=== PATIENT | male | born 1970 | race Caucasian/White ===

== ENCOUNTER 2018-07-21 06:28 | Emergency (ER) | payer SELFPAY ==
[2018-07-21 07:27] VITALS: BP 138/87; PULSE 78; TEMP 98.3; BMI 41.9
--- NOTE | 2018-07-21 07:50 | PDOC ---
History of Present Illness - General Chief Complaint: Ear Problem Stated Complaint: EARACHE Time Seen by Provider: 07/21/18 07:30 History Source: Patient Exam Limitations: No Limitations - History of Present Illness Initial Comments: 48 y/o male presenting to [facility] ER via private auto complaining of right ear ache for the past four days. Pt states the pain started spontaneously and is localized only to the right without sinus pressure, throat pain, mouth pain, lacrimation, or rhinorrhea. Expressed "white stuff" from ear this morning with insertion of Q-tip; no blood. Endorses some decrease in hearing from the effected ear. Pt denies history of similar. Pt denies chronic medical conditions. Past History - Past Medical History Allergies/Adverse Reactions: Allergies Allergy/AdvReac Type Severity Reaction Status Date / Time No Known Allergies Allergy Verified 07/21/18 07:23 Home Medications: Ambulatory Orders Amox-Tr/K Cl [Augmentin - 875Mg Tablet] 1 tab PO BID 7 Days #14 tablet 07/21/18 Ciprofloxacin HCl/Dexameth [Ciprodex Otic Suspension] 4 drop AD BID #1 bottle COPD: No Other medical history: DENIES. - Suicide/Smoking/Psychosocial Hx Smoking History: Former smoker Have you smoked in the past 12 months: No Information on smoking cessation initiated: No Review of Systems - Review of Systems Able to Perform ROS?: Yes Is the patient limited Irish proficient: No Constitutional: No: Chills, Diaphoresis, Fever HEENTM: Yes: Ear Pain, Ear Discharge. No: Recent change in vision, Nose Congestion, Throat Pain, Throat Swelling, Mouth Pain, Difficulty Swallowing Respiratory: No: Shortness of Breath Cardiac (ROS): No: Chest Pain ABD/GI: No: Nausea, Vomiting, Abdominal cramping *Physical Exam - Vital Signs Last Vital Signs Temp Pulse Resp BP Pulse Ox 98.3 F 78 19 138/87 98 07/21/18 07:23 07/21/18 07:23 07/21/18 07:23 07/21/18 07:23 07/21/18 07:23 - Physical Exam Comments: Constitutional: Well-developed, well-nourished male in no acute distress or obvious discomfort. Found sitting up on edge of hospital bed. Alert and oriented x4. Answered all questions appropriately and completely. Speech was non -labored, non-pressured. Head: Normocephalic. No obvious external signs of trauma. Eyes: Sclerae white. EARS: Right external auditory canal erythematous and edematous, unable to visualize TM. Left external auditory canal clear with pearly campos TM. Hearing grossly intact. No R or L mastoid tenderness. NOSE: No nasal discharge. THROAT: Oral cavity and pharynx normal. No inflammation, swelling, exudate, or lesions. Teeth and gingiva in good general condition. Neck: Supple, trachea is midline. No lymphadenitis. No JVD or thyromegaly. Cardiovascular: Regular rate and regular rhythm. No murmur, rubs, clicks, or gallops. Peripheral pulses: Radial pulses full. Respiratory: Equal chest rise and fall. Clear to auscultation bilaterally. No stridor, no wheezing, no rhonchi. Skin: Warm, dry, and intact. No bruising, rashes, or other lesions. No palpable nodules. Psych: Affect: appropriate. Mood: normal. Medical Decision Making - Medical Decision Making 48 y/o previously healthy male complaining of right sided ear ache x4 days with reported purulent drainage this morning. No systemic signs/symptoms. No history of prior. Afebrile. Vitals unremarkable for hypotension or tachycardia. Physical exam revealed erythematous and edematous right external canal without mastoid tenderness or lymphadenitis. Suspect otitis externa but cannot evaluate for otitis media given poor visualization of TM. Low suspicion for mastoiditis versus pariotidis. Ordered POC BGL as pt does not have PCP and is presenting with ear infection without history of similar. Will prescribe 7 day course of Augmentin and Ciprodex otic solution. Pt does not have PCP. Will refer to resident clinic for follow up. Will also provide ENT referral. BGL within normal range. Discussed BGL and physical exam results. Answered all questions. Provided return precautions. Pt expressed verbal understanding and agreement with plan to discharge home with outpatient follow up. Pt discharged from the department without further incident. *DC/Admit/Observation/Transfer Diagnosis at time of Disposition: Otitis externa Qualifiers: Otitis externa type: unspecified type Chronicity: acute Laterality: right Qualified Code(s): H60.501 - Unspecified acute noninfective otitis externa, right ear - Discharge Dispostion Condition at time of disposition: Good Decision to Admit order: No - Prescriptions Prescriptions: Amox-Tr/K Cl [Augmentin - 875Mg Tablet] 1 tab PO BID 7 Days #14 tablet Ciprofloxacin HCl/Dexameth [Ciprodex Otic Suspension] 4 drop AD BID #1 bottle - Referrals Referrals: [facility] [place] [Provider Group] Felton Travis MD [Staff Physician] - - Patient Instructions Printed Discharge Instructions: DI for Otitis Externa Additional Instructions: You likely have an ear infection on the right side. I have sent a prescription for an antibiotic called [email or web address] to [facility] in [place], [place]. The telephone number is [phone]. Please take this medication as directed. Please follow up with a primary care physician within the next week. I have placed a referral for you to see the [facility] [place]. You will need to call to make an appointment. The number is [phone]. The address is as follows: [address] [place] [address] I have also entered a referral for you to follow up with an Ear, Nose, and Throat doctor. Dr. Felton Travis. You will need to call the office to make an appointment. The telephone number is . Come back to the emergency department if your symptoms worsen or if you feel as though your condition requires additional emergency evaluation. Print Language: LUXEMBOURGISH - Post Discharge Activity
--- NOTE | 2018-07-21 08:05 | PDOC ---
Attending Attestation - Resident Resident Name: OcasioKevin - ED Attending Attestation I have performed the following: I have examined & evaluated the patient, The case was reviewed & discussed with the resident, I agree w/resident's findings & plan, Exceptions are as noted - HPI HPI: 07/21/18 08:08 48y M no pmhx presents with complaint of R ear pain x 5 days without systemic complaints in cluding fever/chills, headache, n/v. Pt denies any recent swimming. notes he does clean his ears with q tips occasionally, bot non recently. on exam: ENT: edemadous slightly erythemadous R external ear canal, unable to visualize R TM no mastoid tenderness, no lymphadenopathy L TM and ear canal normal General: no acute ditress suspect otitis externa will ck BGM to r/o DM will have pt fu with PMD will start ciprodex - Physicial Exam PE: 07/22/18 08:46 see above - Medical Decision Making 07/22/18 08:46 see above
== END 2018-07-21 08:40 | disposition home or self-care (01) ==
LOC: JER 06:28
DX: H60.501 Unspecified acute noninfective otitis externa, right ear (principal); Z87.891 Personal history of nicotine dependence
CPT/HCPCS: 82962; 99281-25